=== PATIENT | female | born 1960 | race Caucasian/White ===

== ENCOUNTER 2020-06-07 11:15 | Outpatient (CLI) | payer MEDICARE, MEDICAID ==
[2020-06-07 12:11] VITALS: BP 132/74
--- NOTE | 2020-06-07 12:11 | SLEEP CARE CONSULTATION ---
Information from patient questionnaire entered by Abida Norris. I have reviewed and concur with the information entered by Abida Norris. This document represents the service I personally performed and the decisions made by me, Elena Sena ARNP. History of Present Illness Service Date and Time: 06/07/2020 1115 Reason for Visit: New patient Chief Complaint: reports: Unrefreshed sleep (only 30% of times feels rested), Snoring, Observed pauses in breathing, Fatigue, Other (previous diagnosis 20 years ago of [facility]). denies: Insomnia, Excessive daytime sleepiness, Frequent awakenings at night Date of Onset: 1999 Usual bedtime: lays down at 1030 but does not goe to sleep until 0100 on average Time it takes to fall asleep: 3 hours Snores at night: Yes Observed to quit breathing while asleep: Yes Sleeps alone due to snoring: No (single) Number of times waking at night: 3 Reasons for waking at night: reports: Choking, Snoring, Gasping for air, Other (Takes care of father all night and has to get up to given breathing treatments) Toss, Turn, or Twitch while sleeping: Yes Recalls having dreams: Yes Usually gets out of bed at: 1100 to 1300; gets up for father's neb tx at 0600 and the goes back to bed Feels refreshed in the morning: No Morning headache: Yes (sinus DRAKE every other week; last all day) Sleepy or fatigued during the day: Yes Ever fallen asleep while driving: No (did fall asleep when [age] at wheel) Takes day naps: Yes Dreams during day naps: No Prior sleep studies: Yes Year and Where: 1997 [facility] Type of Sleep Study: Polysomnography Additional HPI information: I had the pleasure of seeing RAGHAV MOULTON today regarding the possibility of her having a sleep disorder. Her current complaints are snoring. About 8 months ago, she almost choked. She woke up and her airway was closed, she sat up and until her airway opened up. She was diagnosed with sleep apnea 20 years ago but gave machine back after 2 weeks because she couldn't keep machine clean and she was getting eye infections. She was concerned that she had harmed her heart and had an echo of her heart and she was told the heart was okay. Her doctor, Dr. Rehman wants more tests done. She is having some heart pains and has an ulcer. 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 - Parasomnia Symptoms Ever been unable to move upon waking from sleep: No Walks in sleep: Yes (as a child) Talks in sleep: Yes Ever acted out dreams in sleep: No Ever felt weak in the knees when startled or emotional: No Bothered by creepy, crawly, restless sensations in legs: No Problems with memory or concentration: Yes (both) Subjective Initial [place] Sleepiness Scale score: 8 Past Medical History Past Medical History: reports: Arthritis, Anxiety, Asthma, Depression, Attention deficit, Other (hypoglycemic; sinus headaches; stomach ulcer). denies: Hypertension, Congestive Heart Failure, Diabetes, Coronary Heart Disease, Insulin resistance, Arrythmia, Hypothyroidism, Anemia, GERD Social History The patient's occupation is a [employer]. Patient is Single and lives in [place], [place]. Have you smoked in the past 12 months: No Cigarettes per day (20/pack): 5 (1 pack/month) Years of smokin Quit date: 1999 Smoking Pack Years: 2.0 Alcohol use: No Caffeine use: Yes Caffeine amount and frequency: 1 cup coffee daily Family History Family history of sleep disordered breathing: No Allergies and Home Medications Drug allergies reviewed: Yes (Sulfa) Home medication list reviewed: Yes Allergy and home medication list: tylenol prn for sinus headaches Celexa 40 mg once daily Review of Systems Cardiovascular: reports: chest pain, have to sleep sitting up. denies: high blood pressure, palpitations, irregular heart rate or pulse, leg or foot swelling Respiratory: reports: shortness of breath Gastrointestinal: reports: other (ulcer). denies: heartburn, difficulty swallowing Urinary: reports: frequency Neurological: reports: headaches, head trauma. denies: speech dysfunction, gait or balance problems Psychiatric: reports: anxiety, depression Ear/Nose/Throat: reports: nasal congestion, sinus problems, dry mouth/throat, tonsillectomy, wisdom teeth removed (only one side). denies: nose bleeds, injury to nose Endocrine: denies: thyroid disease Musculoskeletal: denies: joint pain, back pain Immunologic: denies: allergies to food or environment Physical Exam Blood Pressure: 132/74 Cuff size: long Heart Rate: 81 O2 Saturation: 98 Height: 5 ft 2 in Weight: 235 lb Body Mass Index: 43.0 BMI Classification: Morbidly Obese Neck circumference: 17.5 HEENT: No craniofacial malformation Nostrils: patent to airflow Turbinates: normal Septum: midline Mouth and throat: narrow oropharynx Soft palate: normal Hard palate: normal Uvula: normal Uvula visualization: 25% Mallampati Class III Tongue: enlarged in size with teeth rodriguez on lateral edges Tonsils: absent bilaterally Chin and jaw: normal size and position Neck: normal w/o lymphadenopathy or thyromegaly Heart: regular rate and rhythm Lungs: clear bilaterally Impression and Plan 1. Suspected Obstructive Sleep Apnea-Hypopnea Syndrome, as previously diagnosed 20 years ago at [facility] and also suggested by a history of loud and irregular snoring, gasping or choking in sleep, unrefreshed sleep, and cognitive impairment. I reviewed with patient that a narrow oropharynx and obesity are common predisposing factors for obstructive sleep apnea-hypopnea syndrome. I recommend proceeding to polysomnography to confirm the diagnosis and to assess severity. If the patient has significant sleep disordered breathing, a manual CPAP titration study will also be performed to find the optimal treatment pressure. I informed the patient of what the sleep studies involve and after some discussion, obtained agreement to proceed. Patient would like to do a HST so she would not have to leave her father for the night of the sleep study. She may have to pay for the home study as Medicare does not pay for a HST. I encouraged her to get a nurse for the night of the study to take care of her father and have the in lab study done. She would like to think about it and will call us back with her decision. The pathophysiology of obstructive sleep apnea- hypopnea syndrome was discussed with the patient and health risks of cardiovascular and cerebrovascular disease if not treated. AASM brochure for obstructive sleep apnea-hypopnea syndrome given and reviewed. Risks of drowsy driving discussed in detail and patient advised to avoid long distance driving and to gum puller at the first sign of drowsiness. Patient agreed to plan. Schedule polysomnography/HST +- manual CPAP titration study. Patient will call office with decision on which study she will do. Avoid long distance driving or driving when feeling sleepy. Avoid sedative and muscle relaxant around bedtime. Attempt to lose weight. Review instructions provided by trained office staff on how to prepare for the sleep study. Return for follow-up after sleep study completed. Visit Type: In Office Time Spent with Patient (minutes): 35 Provider Statement: I spent 100% of the Face to Face Visit with the patient with greater than 50% spent counseling the patient and coordination of care.
== END 2020-06-07 11:16 | disposition home or self-care (01) ==
LOC: SC 11:15
PROVIDERS: ATTEND Nurse Practitioner Family
DX: G47.33 Obstructive sleep apnea (adult) (pediatric) (principal); E66.01 Morbid (severe) obesity due to excess calories; Z68.41 Body mass index [BMI] 40.0-44.9, adult; F32.9 Major depressive disorder, single episode, unspecified
CPT/HCPCS: 99204; G0463; 99212

== ENCOUNTER 2020-07-30 19:07 | Outpatient (CLI) | payer MEDICARE, MEDICAID | END 2020-07-30 19:08 | disposition home or self-care (01) | LOC: SC 19:07 | PROVIDERS: ATTEND Nurse Practitioner Family | DX: G47.33 Obstructive sleep apnea (adult) (pediatric) (principal); G47.61 Periodic limb movement disorder; E66.01 Morbid (severe) obesity due to excess calories; Z68.41 Body mass index [BMI] 40.0-44.9, adult | CPT/HCPCS: 95810 ==

== ENCOUNTER 2020-08-07 13:19 | Outpatient (CLI) | payer MEDICARE, MEDICAID ==
--- NOTE | 2020-08-07 13:40 | SLEEP CARE CONSULTATION ---
Information from patient questionnaire entered by Florence Johnson. I have reviewed and concur with the information entered by Florence Johnson. This document represents the service I personally performed and the decisions made by me, Elena Sena ARNP. History of Present Illness Service Date and Time: 08/07/2020 1319 Initial [place] Sleepiness Scale score: 8 (in 2020) Current [place] Sleepiness Scale score: 5 Additional HPI information: RAGHAV MOULTON returns for follow up and results of the recently performed polysomnography. I explained the pathophysiology behind obstructive sleep apnea. We then spent quite a bit of time discussing different treatment options. For mild obstructive sleep apnea, surgery and oral appliance are alternatives to nasal CPAP therapy but in moderate or severe cases, nasal CPAP is the most effective and reliable treatment. Because apnea is primarily in supine position, then positional management therapy could be effective. Methods discussed such as positioning with pillows, using a T-shirt with tennis balls in the back, and shown commercial products that have a pillow format on back to prevent supine sleep. I reviewed the impact of weight changes on sleep apnea and strongly recommended losing weight. After some discussion, the patient opted to go with the nasal CPAP therapy. Nasal autoCPAP set at 4-15 cmH20 will be ordered with rationale explained. A manual titration study will be ordered if unable to find optimal pressure with office adjustments. I explained how CPAP machine works with sample devices Respironics Dreamstation and ResWizdee [id number] and what to expect when using the machine. Using CPAP every night in order to get used to it was emphasized. Patient advised to put CPAP mask on before getting into bed so as not to fall asleep without CPAP. To assist acclimation to CPAP use, it could also be used for a short time during day while reading or watching TV. The patient was instructed to call the CPAP supplier to discuss any mechanical problem that may occur. If the mask given is uncomfortable or is difficult to keep on through the night even with adjustment, contact the CPAP supplier as many will replace with another mask style if notified before 30 days. If snoring or perceives is not getting enough air or too much air from the machine, notify this office. AAS patient education PAP tips reviewed and given to patient. Patient was cautioned about risks of drowsy driving until sleepiness symptoms resolve. Sleep Study - Results Type of Sleep Study: Polysomnography Prior sleep studies: Yes Year and Where: 1997 [facility] Polysomnography/Home Sleep Study results: IMPRESSION: The quality of the study is good. The patient had slightly reduced sleep efficiency due to a few awakenings after the sleep onset. The sleep architecture was relatively normal considering the first-night effect. Respiratory monitoring showed mild obstructive sleep apnea-hypopnea (AHI = 14.9) associated with frequent arousals, oxyhemoglobin desaturation and mild hypoxia (ernie oxygen saturation of 82%). The patient only slept supine during this study (supine AHI = 14.9; non-supine = 0.00). Snore was infrequent and loud in intensity. There was mild periodic leg movement of sleep not associated with sleep fragmentation. Cardiac rhythm was normal sinus rhythm without significant arrhythmia. No abnormal behavior (parasomnia) observed during the night. Allergies and Home Medications Drug allergies reviewed: Yes (Sulfa, demerol) Home medication list reviewed: Yes (no changes) Review of Systems Review of systems same as previous: Yes (no changes) Physical Exam Heart Rate: 92 O2 Saturation: 99 Height: 5 ft 2 in Weight: 237 lb Body Mass Index: 43.3 BMI Classification: Morbidly Obese Impression and Plan 1. Obstructive Sleep Apnea-Hypopnea Syndrome, mild, with lowest oxygen saturation of 82%. Obviously this is the cause of the patients symptoms of unrefreshed sleep, and excessive daytime sleepiness. Positive pressure therapy could benefit anxiety, asthma, depression and attention deficit. Patient has been previously diagnosed and has tried the CPAP, she is hoping it will go better this time. As mentioned above, the patient will be started on nasal autoCPAP therapy with pressure set at 4-15 cmH2O. A manual titration study will be completed if unable to find optimal treatment pressure with office adjustments. Compliance guidelines also reviewed. A copy of compliance guidelines will be given for reference at check out. * Nasal auto CPAP therapy, pressure at 4-15 cm H2O. * Attempt to lose weight. * Avoid alcohol consumption near bedtime. * The patient is again cautioned about driving until sleepiness completely resolves. * Return one month after CPAP obtained. I will assess response to therapy and compliance at that time. Visit Type: In Office Time Spent with Patient (minutes): 16 Provider Statement: I spent 100% of the Face to Face Visit with the patient with greater than 50% spent counseling the patient and coordination of care.
== END 2020-08-07 13:20 | disposition home or self-care (01) ==
LOC: SC 13:19
PROVIDERS: ATTEND Nurse Practitioner Family
DX: G47.33 Obstructive sleep apnea (adult) (pediatric) (principal); E66.01 Morbid (severe) obesity due to excess calories; Z68.41 Body mass index [BMI] 40.0-44.9, adult
CPT/HCPCS: 99213; G0463; 99212

== ENCOUNTER 2020-09-26 21:16 | Outpatient (CLI) | payer MEDICARE, MEDICAID | END 2020-09-26 21:17 | disposition home or self-care (01) | LOC: COV 21:16 | PROVIDERS: ATTEND Family Medicine | DX: R50.9 Fever, unspecified (principal); R07.0 Pain in throat; Z20.822 Contact with and (suspected) exposure to COVID-19 ==

== ENCOUNTER 2020-10-17 11:15 | Outpatient (CLI) | payer MEDICARE, MEDICAID ==
--- NOTE | 2020-10-17 11:44 | SLEEP CARE CONSULTATION ---
Information from patient questionnaire entered by Myesha Moreno. I have reviewed and concur with the information entered by Myesha Moreno. This document represents the service I personally performed and the decisions made by me, Elena Sena ARNP. History of Present Illness Service Date and Time: 10/17/2020 1115 Previous diagnosis: Mild, Obstructive Sleep Apnea-Hypopnea Syndrome AHI: 14.9 (in 2019) Reason for follow up: first compliance Equipment type: CPAP Equipment obtained from: Other ([facility]; got initial supplies, next shipment in October) Mask style: Nasal Backup mask available: Yes (other mask) Last cushion change: 1 week ago Prior sleep studies: Yes Year and Where: 2019 - [facility]; [address] [place] [address] Type of Sleep Study: Polysomnography HPI additional information: RAGHAV MOULTON was diagnosed to have mild, AHI 14.9, obstructive sleep apnea- hypopnea syndrome and returned today for CPAP therapy first compliance follow- up. CPAP Compliance Data - Data Reviewed with Patient Average duration of nightly device use: 9 hr 41 mi Compliance rate %: 90 (08/22/20-09/20/20)(63.3 last 30 days) Current pressure setting (cmH2O): 4-15 (4.4 median, 5.2 average) Humidity settin Heated hose settin Average residual AHI: 2.6 Average large leak: 5 min 38 sec Subjective Patient concerns: reports: mask discomfort (just doesn't like something on her face), air blowing in eyes, mask leak noise, dry mouth, nose, throat (dry mouth). denies: aerophagia, condensation in mask/hose, nasal congestion, epista xis, other Observed to snore while using device: No (don't think so) Current pressure setting perceived as: comfortable On therapy, patient: reports: sleeping better, awakening more refreshed, being more awake and alert during the day, more rested overall. denies: drowsiness while driving Initial [place] Sleepiness Scale score: 8 (in 2019) Current [place] Sleepiness Scale score: 5 Allergies and Home Medications Drug allergies reviewed: Yes (Sulfa) Home medication list reviewed: Yes (Celexa) Review of Systems Review of systems same as previous: Yes (no changes) Physical Exam Heart Rate: 87 O2 Saturation: 98 Height: 5 ft 2 in Weight: 244 lb Body Mass Index: 44.6 BMI Classification: Morbidly Obese Impression and Plan 1. Obstructive Sleep Apnea-Hypopnea Syndrome, mild, with fair treatment compliance and good apnea control. On CPAP therapy, the patient has better sleep quality and is more rested overall. She states she really does not like using the CPAP machine or wearing the mask at night. Sometimes she just won't wear it at night more recently. I advised her to wear her CPAP every night to get the most benefit from the treatment. Her Roxana has decreased from 8 to 5 since starting the CPAP therapy. She has had some air blowing in her eyes and leaking but this resolves with adjusting the mask. She also wears her glasses at night and the air stops getting in her eyes. She does not want to try a different mask. She has also had some mouth dryness and her humidity is set at 3. Oral dryness can be reduced by adjusting humidity setting higher or heated hose lower or by adjusting both settings. I encouraged her to increase her her setting up to 4 to see if this will decrease her dryness, if not she can increase more. If she should get some condensation in her mask or hose she can increase the heated hose setting. She voiced understanding and agreement. I am adjusting her pressure to reflect the pressures being used with good result on control of apne as to 4-6 cmH2O. Patient's apnea severity and rationale for treatment to reduce apnea, improve sleep quality and reduce cardiovascular and cerebrovascular events was reviewed. I also reviewed the benefit of consistent device use of CPAP for depression, anxiety, asthma and attention deficit. * Change auto CPAP pressure to 4-6 cmH2O * Notify me if snoring with mask or feeling that the pressure is too much or too little * Attempt to lose weight * Call this office if any problems using CPAP * Return for follow up in 1-2 months, or sooner if concerns arise Counseling Topics: Spare mask, Weight loss health impact Visit Type: In Office Time Spent with Patient (minutes): 21 Provider Statement: I spent 100% of the Face to Face Visit with the patient with greater than 50% spent counseling the patient and coordination of care.
== END 2020-10-17 11:16 | disposition home or self-care (01) ==
LOC: SC 11:15
PROVIDERS: ATTEND Nurse Practitioner Family
DX: G47.33 Obstructive sleep apnea (adult) (pediatric) (principal); E66.01 Morbid (severe) obesity due to excess calories; Z68.41 Body mass index [BMI] 40.0-44.9, adult
CPT/HCPCS: 99213; G0463; 99212

== ENCOUNTER 2020-11-17 10:56 | Outpatient (CLI) | payer MEDICARE, MEDICAID, OTHER ==
--- NOTE | 2020-11-17 11:42 | SLEEP CARE CONSULTATION ---
Information from patient questionnaire entered by Myesha Moreno. I have reviewed and concur with the information entered by Myesha Moreno. This document represents the service I personally performed and the decisions made by , Elena Sena ARNP. History of Present Illness Service Date and Time: 11/17/2020 1056 Previous diagnosis: Mild, Obstructive Sleep Apnea-Hypopnea Syndrome AHI: 14.9 (in 2019) Reason for follow up: one month (with pressure change) Equipment type: CPAP Equipment obtained from: Other ([facility]; got initial supplies) Mask style: Nasal Backup mask available: No (will keep old mask when replaced) Last cushion change: over a week Prior sleep studies: Yes Year and Where: 2019 - [facility]; [address] [place] [address] Type of Sleep Study: Polysomnography HPI additional information: RAGHAV MOULTON was diagnosed to have mild, AHI 14.9, obstructive sleep apnea- hypopnea syndrome and returned today for CPAP therapy one month with pressure change follow-up. CPAP Compliance Data - Data Reviewed with Patient Average duration of nightly device use: 9 hr 21 min Compliance rate %: 90 Current pressure setting (cmH2O): 4-6 Humidity settin Heated hose settin Average residual AHI: 2.6 Average large leak: 5 min 51 sec Subjective Missed days of use due to: reports: mask issues Patient concerns: reports: mask discomfort (some pressure on the right side for last 2 nights, hurting nose/eye), air blowing in eyes (on right side), dry mouth, nose, throat. denies: aerophagia, mask leak noise, condensation in mask/hose, nasal congestion, epistaxis, other Observed to snore while using device: No Current pressure setting perceived as: comfortable On therapy, patient: reports: sleeping better, awakening more refreshed, being more awake and alert during the day, more rested overall. denies: drowsiness while driving Initial [place] Sleepiness Scale score: 8 (in 2019) Current [place] Sleepiness Scale score: 7 Allergies and Home Medications Drug allergies reviewed: Yes (sulfa) Home medication list reviewed: Yes (no changes) Allergy and home medication list: Celexa Review of Systems Review of systems same as previous: Yes (no changes) Physical Exam Heart Rate: 90 O2 Saturation: 98 Height: 5 ft 2 in Weight: 247 lb Body Mass Index: 45.1 BMI Classification: Morbidly Obese Impression and Plan 1. Obstructive Sleep Apnea-Hypopnea Syndrome, mild, with good treatment compliance and good apnea control. On CPAP therapy, the patient has better sleep quality and is more rested overall. She has felt the last two nights the pressure has been too much because it was blowing in her eye and caused some pain on the side of her nose. She was advised to adjust her mask for better fit. I suggested she try a sleeping mask to cover her eyes but she states that she wears glasses while sleeping which is deflecting the air from her eyes. She is concerned the pressure is too much. This has only happened the last 2 nights so I advised her to adjust her mask and see if this helps. She is to let me know if the discomfort continues and we can try to reduce her pressure at that time. She has had some mouth dryness and just drinks water during the night. Oral dryness can be reduced by adjusting humidity setting higher or heated hose lower or by adjusting both settings. Verbal instructions given on how to change humidity and heated hose settings with rationale explaining why to change. Patient advised that chronic oral dryness can affect dental health. She is exercising and walking her dogs to keep activity up to help her to lose weight. I encouraged her to continue to make efforts to lose weight. Patient's apnea severity and r ationale for treatment to reduce apnea, improve sleep quality and reduce cardiovascular and cerebrovascular events was reviewed. I also reviewed the benefit of consistent device use of CPAP for depression/anxiety, asthma and attention deficit. * Continue autoCPAP pressure at 4-6 cmH2O * Notify me if snoring with mask or feeling that the pressure is too much or too little * Attempt to lose weight * Call this office if any problems using CPAP * Return for follow up in 3 months, or sooner if concerns arise Counseling Topics: Spare mask, Weight loss health impact, Activity level Visit Type: In Office Time Spent with Patient (minutes): 21 Provider Statement: I spent 100% of the Face to Face Visit with the patient with greater than 50% spent counseling the patient and coordination of care.
== END 2020-11-17 10:57 | disposition home or self-care (01) ==
LOC: SC 10:56
PROVIDERS: ATTEND Nurse Practitioner Family
DX: G47.33 Obstructive sleep apnea (adult) (pediatric) (principal); E66.01 Morbid (severe) obesity due to excess calories; Z68.42 Body mass index [BMI] 45.0-49.9, adult
CPT/HCPCS: 99213; G0463; 99212

== ENCOUNTER 2020-12-20 12:28 | Outpatient (CLI) | payer MEDICARE, MEDICAID, OTHER ==
--- NOTE | 2020-12-21 08:25 | Mammography Report ---
BILATERAL DIGITAL SCREENING MAMMOGRAM 3D/2D: 12/20/2020 CLINICAL: Routine screening. Additional films were requested but not obtained. There are scattered fibroglandular elements in bot h breasts. There is a developing new irregular asymmetry in the right breast middle depth central to the nipple seen on the craniocaudal view only. No other significant masses, calcifications, or other findings are seen in either breast. IMPRESSION: INCOMPLETE: NEED PRIOR STUDIES FOR COMPARISON The developing new irregular asymmetry in the right breast is indeterminate. A diagnostic mammogram and ultrasound is recommended. This exam was interpreted at Station ID: [id number]. NOTE: For mammograms, a report in lay terms will be sent to the patient. Approximately 15% of breast malignancies will not be visualized mammographically. In the management of a palpable breast mass, a negative mammogram must not discourage biopsy of a clinically suspicious lesion. Electronically Signed By: Cristin ching/liborio:12/20/2020 15:58:34 ACR BI-RADS Category 0 Need prior studies for comparison [id number] PARENCHYMAL PATTERN: (A) - The breast(s) demonstrate(s) scattered fibroglandular densities. BI-RADS CATEGORY: (0) - 0 Mammo and [place] [id number] Immediate follow-up LATERALITY: (B)
== END 2020-12-20 12:29 | disposition home or self-care (01) ==
LOC: DI 12:28
PROVIDERS: ATTEND Registered Nurse
DX: Z12.31 Encounter for screening mammogram for malignant neoplasm of breast (principal); R92.8 Other abnormal and inconclusive findings on diagnostic imaging of breast

== ENCOUNTER 2021-02-01 09:35 | Outpatient (CLI) | payer MEDICARE, MEDICAID ==
--- NOTE | 2021-02-02 10:48 | Ultrasound Report ---
LIMITED ULTRASOUND OF RIGHT BREAST: 02/01/2021 CLINICAL: Patient returns today to evaluate a focal asymmetry in the right breast. Comparison is made to exams dated: 02/01/2021 mammogram, 12/20/2020 mammogram - [facility], 08/25/2019 mammogram, 12/03/2016 mammogram, and 08/12/2015 mammogram - [facility] . Real-time ultrasound of the right breast 11-1 o'clock region was performed on the areas of interest. Ralph scale images of the real-time examination were reviewed. No discrete cystic or solid mass lesion identified in the area of mammographic abnormality. IMPRESSION: NEGATIVE There is no sonographic evidence of malignancy. There are no abnormalities seen in the right breast to correspond with the mammography finding. A 1 year screening mammogram is recommended. This exam was interpreted at Station ID: [id number]. Electronically Signed By: Derek Toribio M.D. ddp/:02/01/2021 10:28:27 Ultrasound BI-RADS: 1 Negative BI-RADS CATEGORY: (1) - 1 RECOMMENDATION: (ANNUAL) - Recommend routine annual screening mammography. [id number] 1 year screening LATERALITY: (B)
--- NOTE | 2021-02-02 10:48 | Mammography Report ---
UNILATERAL RIGHT DIGITAL DIAGNOSTIC MAMMOGRAM 3D/2D: 02/01/2021 CLINICAL: Patient returns today to evaluate a density in the right breast. Comparison is made to exams dated: 12/20/2020 mammogram - [facility], [facility], 12/03/2016 mammogram, and 08/12/2015 mammogram - [facility]. There are scattere d fibroglandular elements in right breast. There is an oval low density asymmetry with an indistinct and circumscribed margin in the right breas t middle depth central to the nipple seen on the craniocaudal view only. This is less prominent on a dditional views. No other significant masses or calcifications are seen in the breast. IMPRESSION: INCOMPLETE: NEEDS ADDITIONAL IMAGING EVALUATION The oval low density asymmetry in the right breast is indeterminate. An ultrasound is recommended. Ultrasound will be performed immediately following the current exam. This exam was interpreted at Station ID: [id number]. NOTE: For mammograms, a report in lay terms will be sent to the patient. Approximately 15% of breast malignancies will not be visualized mammographically. In the management of a palpable breast mass, a negative mammogram must not discourage biopsy of a clinically suspicious lesion. Electronically Signed By: Derek Toribio M.D. ddp/:02/01/2021 10:09:51 ACR BI-RADS Category 0: Incomplete 3340F PARENCHYMAL PATTERN: (A) - The breast(s) demonstrate(s) scattered fibroglandular densities. BI-RADS CATEGORY: (0) - 0 Ultrasound [id number] Immediate follow-up LATERALITY: (B)
== END 2021-02-01 09:36 | disposition home or self-care (01) ==
LOC: DI 09:35
PROVIDERS: ATTEND Registered Nurse
DX: R92.8 Other abnormal and inconclusive findings on diagnostic imaging of breast (principal)

== ENCOUNTER 2021-02-16 10:54 | Outpatient (CLI) | payer MEDICARE, MEDICAID ==
--- NOTE | 2021-02-16 11:52 | SLEEP CARE CONSULTATION ---
Information from patient questionnaire entered by Myesha Moreno. I have reviewed and concur with the information entered by Myesha Moreno. This document represents the service I personally performed and the decisions made by , Elena Sena ARNP. History of Present Illness Service Date and Time: 02/16/2021 1054 Previous diagnosis: Mild, Obstructive Sleep Apnea-Hypopnea Syndrome AHI: 14.9 (in 2019) Reason for follow up: three month Equipment type: CPAP Equipment obtained from: Other ([facility]; getting supplies as needed) Mask style: Nasal Backup mask available: Yes (old mask) Last cushion change: last week Prior sleep studies: Yes Year and Where: 2019 - [facility]; [address] [place] [address] Type of Sleep Study: Polysomnography HPI additional information: RAGHAV MOULTON was diagnosed to have mild, AHI 14.9, obstructive sleep apnea- hypopnea syndrome and returned today for CPAP therapy three month follow-up. CPAP Compliance Data - Data Reviewed with Patient Average duration of nightly device use: 9 hr 10 min Compliance rate %: 97.8 (90 days) Current pressure setting (cmH2O): 4-6 Humidity settin Heated hose settin Average residual AHI: 2.8 Central apnea: 0.2 Obstructive apnea: 0.5 Average large leak: 6 min 11 sec Subjective Patient concerns: reports: dry mouth, nose, throat (occasionally and drinks water; has Biotene too). denies: aerophagia, mask discomfort, air blowing in eyes, mask leak noise, condensation in mask/hose, nasal congestion, epistaxis, other Observed to snore while using device: No Current pressure setting perceived as: comfortable On therapy, patient: reports: sleeping better, awakening more refreshed, being more awake and alert during the day, more rested overall. denies: drowsiness while driving Initial [place] Sleepiness Scale score: 8 (in 2019) Current [place] Sleepiness Scale score: 6 Allergies and Home Medications Home medication list reviewed: Yes (no new meds) Review of Systems Review of systems same as previous: No (numbness in R hand with pain; seeing PCP) Physical Exam Heart Rate: 70 O2 Saturation: 99 Height: 5 ft 2 in Weight: 232 lb Weight change since last visit: 15 lb loss Body Mass Index: 42.4 BMI Classification: Morbidly Obese Impression and Plan 1. Obstructive Sleep Apnea-Hypopnea Syndrome, mild, with good treatment compliance and good apnea control. On CPAP therapy, the patient has better sleep quality and is more rested overall. Patient has lost weight. Currently patients BMI is 42.4. Obesity increases the risk of apnea, CPAP pressure requirements and overall health risks especially cardiovascular and diabetes. Thus patient is advised to continue to lose weight. Weight loss can be done with reducing portion size, reducing refined foods and balancing content with vegetables, fruit and whole grain foods. The patient's CPAP pressure range should accommodate some weight loss. Symptoms to report for additional pressure adjustment discussed. Patient's apnea severity and rationale for treatment to reduce apnea, improve sleep quality and reduce cardiovascular and cerebrovascular events was reviewed. I also reviewed the benefit of consistent device use of CPAP for depression, anxiety and attention deficit. * Continue autoCPAP pressure at 4-6 cmH2O * Notify me if snoring with mask or feeling that the pressure is too much or too little * Continue to lose weight * Call this office if any problems using CPAP * Return for follow up in 6 months, or sooner if concerns arise Counseling Topics: Spare mask, Weight loss health impact Visit Type: In Office Time Spent with Patient (minutes): 20 Provider Statement: I spent 100% of the Face to Face Visit with the patient with greater than 50% spent counseling the patient and coordination of care.
== END 2021-02-16 10:55 | disposition home or self-care (01) ==
LOC: SC 10:54
PROVIDERS: ATTEND Nurse Practitioner Family
DX: G47.33 Obstructive sleep apnea (adult) (pediatric) (principal); E66.01 Morbid (severe) obesity due to excess calories; Z68.41 Body mass index [BMI] 40.0-44.9, adult
CPT/HCPCS: 99213; G0463; 99212

== ENCOUNTER 2021-02-28 10:41 | Outpatient (CLI) | payer MEDICARE, MEDICAID ==
--- NOTE | 2021-02-28 14:50 | Ultrasound Report ---
PROCEDURE: Duplex Ext Veins Right INDICATIONS: RUE EDEMA, RUE PAIN TECHNIQUE: Real-time imaging, as well as color and pulse Doppler interrogation, were performed of the lower extr emity deep veins from the inguinal ligament to the popliteal fossa. COMPARISON: None. FINDINGS: The deep veins are normally compressible, and free of intraluminal thrombus. Color and pu lse Doppler demonstrate normal phasic intraluminal flow. There is normal augmentation response to di stal compression maneuver. IMPRESSION: Negative for deep venous thrombosis of the right upper extremity. Reviewed by: Mau Burns MD on 02/28/2021 2:49 PM PDT Approved by: Mau Burns MD on 02/28/2021 2:49 PM PDT Station ID: [id number]
--- NOTE | 2021-03-01 13:49 | Ultrasound Report ---
ULTRASOUND OF RIGHT AXILLA: 02/28/2021 CLINICAL: Diffuse right axilla pain. Comparison is made to exams dated: 02/01/2021 ultrasound, 02/01/2021 mammogram, 12/20/2020 mammogram - [facility], 08/25/2019 mammogram, and 12/03/2016 mammogram - [facility] . Real-time ultrasound of the right axilla was performed. Ralph scale images of the real-time examinati on were reviewed. No significant abnormalities were seen sonographically in the right axilla. IMPRESSION: NEGATIVE There is no sonographic evidence of malignancy. There is no abnormality seen in the right axilla to correspond with the pain in the right axilla, how ever, clinical correlation is recommended. A 1 year screening mammogram is recommended. Future imaging is recommended as follows: 12/21/2021 sc reening mammogram. This exam was interpreted at Station ID: [id number]. Electronically Signed By: Shankar clemons/liborio:02/28/2021 12:20:07 Ultrasound BI-RADS: 1 Negative BI-RADS CATEGORY: (1) - 1 RECOMMENDATION: (ANNUAL) - Recommend routine annual screening mammography. [id number] 1 year screening LATERALITY: (B)
== END 2021-02-28 10:42 | disposition home or self-care (01) ==
LOC: DI 10:41
PROVIDERS: ATTEND Internal Medicine
DX: M79.621 Pain in right upper arm (principal); R60.0 Localized edema

== ENCOUNTER 2021-04-09 12:00 | Outpatient (CLI) | payer MEDICARE, MEDICAID ==
--- NOTE | 2021-04-09 12:25 | XRAY Report ---
PROCEDURE: Wrist 3 View RT INDICATIONS: RIGHT WRIST INJURY TECHNIQUE: 3 views of the wrist were acquired. COMPARISON: None FINDINGS: Bones: No fractures or dislocations. No suspicious bony lesions. Soft tissues: No suspicious soft tissue calcifications. IMPRESSION: No fracture. No osseous lesion. If there are persistent symptoms or continued clinical concern for pa thology, then repeat plain film radiographs (7-10 days) or advanced imaging (CT, MR, bone scan) shoul d be considered for further evaluation. Reviewed by: Nayana Montano MD, PhD on 04/09/2021 12:23 PM PDT Approved by: Nayana Montano MD, PhD on 04/09/2021 12:23 PM PDT Station ID: [id number]
== END 2021-04-09 12:01 | disposition home or self-care (01) ==
LOC: DI 12:00
PROVIDERS: ATTEND Internal Medicine
DX: S69.91XA Unspecified injury of right wrist, hand and finger(s), initial encounter (principal)

== ENCOUNTER 2021-11-12 12:58 | Outpatient (CLI) | payer MEDICARE, MEDICAID ==
--- NOTE | 2021-11-12 13:33 | XRAY Report ---
PROCEDURE: Chest 2 View X-Ray INDICATIONS: COUGH TECHNIQUE: 2 view(s) of the chest. COMPARISON: None. FINDINGS: SUPPORT DEVICES: None. LUNGS/PLEURA: No focal consolidation, pleural effusion or space-occupying pneumothorax. MEDIASTINUM: The cardiomediastinal silhouette is within normal limits. BONES/SOFT TISSUES: No acute abnormality. IMPRESSION: 1.No acute cardiopulmonary abnormality. Reviewed by: Murphy Tripathi MD on 11/12/2021 1:32 PM [facility] Approved by: Murphy Tripathi MD on 11/12/2021 1:32 PM [facility] Station ID: [id number]
== END 2021-11-12 12:59 | disposition home or self-care (01) ==
LOC: DI 12:58
PROVIDERS: ATTEND Internal Medicine
DX: R05.3 Chronic cough (principal)

== ENCOUNTER 2021-12-25 11:01 | Outpatient (CLI) | payer MEDICARE, MEDICAID ==
[2021-12-25 11:42] VITALS: BP 133/92
--- NOTE | 2021-12-25 11:42 | SLEEP CARE CONSULTATION ---
Information from patient questionnaire entered by Jonatan Calvert MA. I have reviewed and concur with the information entered by Jonatan Calvert MA. This document represents the service I personally performed and the decisions made by , Elena Sena ARNP. History of Present Illness Service Date and Time: 12/25/2021 1101 Previous diagnosis: Mild, Obstructive Sleep Apnea-Hypopnea Syndrome AHI: 14.9 (in 2019) Reason for follow up: six month (6 month f/u. check new machine, ) Equipment type: CPAP Equipment obtained from: Other ([facility]; getting supplies as needed) Mask style: Nasal Backup mask available: Yes (old mask) Last cushion change: 2 weeks Prior sleep studies: Yes Year and Where: 2019 - [facility]; [address] [place] [address] Type of Sleep Study: Polysomnography HPI additional information: RAGHAV MOULTON was diagnosed to have mild, AHI 14.9, obstructive sleep apnea- hypopnea syndrome and returned today for CPAP therapy six month follow-up. Sleep Study - Results Type of Sleep Study: Polysomnography Prior sleep studies: Yes Year and Where: 2019 - [facility]; [address] [place] [address] CPAP Compliance Data - Data Reviewed with Patient Average duration of nightly device use: 5 hours 10 minutes Compliance rate %: 63.3 (30 days) Current pressure setting (cmH2O): 4-6 Humidity settin Heated hose settin Average residual AHI: 2.0 Central apnea: 0.2 Obstructive apnea: 0.3 Average large leak: 53 seconds Subjective Missed days of use due to: reports: other (couldn't afford to pay monthly copay to get supplies) Patient concerns: reports: dry mouth, nose, throat (dry nose, throat). denies: aerophagia, mask discomfort, air blowing in eyes, mask leak noise, condensation in mask/hose, nasal congestion, epistaxis, other Observed to snore while using device: No Current pressure setting perceived as: comfortable On therapy, patient: reports: sleeping better, awakening more refreshed, being more awake and alert during the day, more rested overall. denies: drowsiness while driving Initial [place] Sleepiness Scale score: 8 (in 2019) Current [place] Sleepiness Scale score: 4 (12/2021) Allergies and Home Medications Known drug allergies: Yes (SULFA) Drug allergies reviewed: Yes Home medication list reviewed: Yes (no changes) Allergy and home medication list: Celexa Review of Systems Review of systems same as previous: Yes (no changes) Physical Exam Vital signs obtained and entered by: PEYMAN WHEAT Blood Pressure: 133/92 (PULSE 72, RESP 18, RIGHT, ) Heart Rate: 73 O2 Saturation: 97 (N95) Height: 5 ft 2 in Weight: 196 lb Body Mass Index: 35.8 BMI Classification: Obese Impression and Plan 1. Obstructive Sleep Apnea-Hypopnea Syndrome, mild, with good treatment compliance and good apnea control. On CPAP therapy, the patient has better sleep quality and is more rested overall. She has been over 90% compliant in the past but she had issues about affording her CPAP supplies copay. She stopped using the CPAP because she could not afford the copay because she did not want to run out of supplies. Patient's apnea severity and rationale for treatment to reduce apnea, improve sleep quality and reduce cardiovascular and cerebrovascular events was reviewed. I also reviewed the benefit of consistent device use of CPAP for depression, anxiety and attention deficit. 2. Obesity, unspecified. Currently patients BMI is 35.8. Obesity increases the risk of apnea, CPAP pressure requirements and overall health risks especially cardiovascular and diabetes. Thus patient is advised to continue to try to lose weight. Weight loss can be done with reducing portion size, reducing refined foods and balancing content with vegetables, fruit and whole grain foods. In addition, patient encouraged to get regular exercise. The patient's CPAP pressure range should accommodate some weight loss. Symptoms to report for additional pressure adjustment discussed. * Continue auto CPAP pressure at 4-6 cmH2O * Notify me if snoring with mask or feeling that the pressure is too much or too little * Attempt to lose weight * Call this office if any problems using CPAP * Return for follow up in 1 year, or sooner if concerns arise Counseling Topics: Spare mask, Weight loss health impact Visit Type: In Office Time Spent with Patient (minutes): 23 Provider Statement: I spent 100% of the Face to Face Visit with the patient with greater than 50% spent counseling the patient and coordination of care.
== END 2021-12-25 11:02 | disposition home or self-care (01) ==
LOC: SC 11:01
PROVIDERS: ATTEND Nurse Practitioner Family
DX: G47.33 Obstructive sleep apnea (adult) (pediatric) (principal); E66.9 Obesity, unspecified; Z68.35 Body mass index [BMI] 35.0-35.9, adult
CPT/HCPCS: 99213; G0463; 99212

== ENCOUNTER 2023-03-05 14:41 | Outpatient (CLI) | payer MEDICARE, MEDICAID ==
--- NOTE | 2023-03-05 15:03 | SLEEP CARE CONSULTATION ---
Information from patient questionnaire entered by Steph Ruffin. I have reviewed and concur with the information entered by Steph Ruffin. This document represents the service I personally performed and the decisions made by me, Elena Sena ARNP. History of Present Illness Service Date and Time: 03/05/2023 1441 Previous diagnosis: Mild, Obstructive Sleep Apnea-Hypopnea Syndrome AHI: 14.9 (in 2019) Reason for follow up: annual (LAST SEEN 01/2022) Equipment type: CPAP (Dreamstation 2, s/u 08/21/2020) Equipment obtained from: Other ([facility]; getting supplies as needed) Mask style: Nasal Mask brand: Respironics (Dreamwear) Backup mask available: Yes (old mask) Last cushion change: 2 weeks ago Prior sleep studies: Yes Year and Where: 2019 - [facility]; [address] [place] [address] Type of Sleep Study: Polysomnography HPI additional information: RAGHAV MOULTON was diagnosed to have mild, AHI 14.9, obstructive sleep apnea- hypopnea syndrome and returned today for CPAP therapy annual follow-up. Sleep Study - Results Type of Sleep Study: Polysomnography Prior sleep studies: Yes Year and Where: 2019 - [facility]; [address] [place] [address] CPAP Compliance Data - Data Reviewed with Patient Average duration of nightly device use: 6 hours 39 minutes Compliance rate %: 58.3 (113/180 days used) Current pressure setting (cmH2O): 4-6 Average residual AHI: 3.0 Central apnea: 0.1 Obstructive apnea: 0.4 Hypopnea: 2.5 Average large leak: 1 mins 11 secs Subjective Missed days of use due to: reports: other (fall asleep without mask on, trying to prep earlier to remember to put on) Patient concerns: denies: aerophagia, mask discomfort, air blowing in eyes, mask leak noise, condensation in mask/hose, nasal congestion, dry mouth, nose, throat, epistaxis Observed to snore while using device: No Current pressure setting perceived as: comfortable On therapy, patient: reports: sleeping better, awakening more refreshed, being more awake and alert during the day, more rested overall. denies: drowsiness while driving Initial [place] Sleepiness Scale score: 8 (in 2019) Current [place] Sleepiness Scale score: 5 Allergies and Home Medications Known drug allergies: Yes (Sulfa) Drug allergies reviewed: Yes Home medication list reviewed: Yes (no changes) Review of Systems Review of systems same as previous: Yes (no changes) Physical Exam Vital signs obtained and entered by: Elena Rahman NP Blood Pressure: 128/58 Cuff size: wrist (right) Heart Rate: 77 O2 Saturation: 98 Height: 5 ft 2 in Weight: 219 lb Body Mass Index: 40.0 BMI Classification: Morbidly Obese Impression and Plan 1. Obstructive Sleep Apnea-Hypopnea Syndrome, mild, with fair treatment compliance and good apnea control. On CPAP therapy, the patient has better sleep quality and is more rested overall. 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 She is trying to prepare it earlier in the day so she is not so tired coming to it at the end of the day and not want to put it on. I encouraged her to put her CPAP mask on every night and reviewed compliance guidelines with her. She voiced understanding. Patient has significant improvement of their sleep apnea and is satisfied with current CPAP therapy. Patient denies problems with oral dryness, nasal congestion, epistaxis, skin irritation or aerophagia. Patient's apnea severity and rationale for treatment to reduce apnea, improve sleep quality and reduce cardiovascular and cerebrovascular events was reviewed. I also reviewed the benefit of consistent device use of CPAP for depression, anxiety and attention deficit. 2. Obesity, unspecified. Currently patients BMI is 40. She has gained weight. Obesity increases the risk of apnea, CPAP pressure requirements and overall health risks especially cardiovascular and diabetes. Thus patient is advised to lose weight. * Continue auto CPAP pressure at 4-6 cmH2O * Update supply prescription * Notify me if snoring with mask or feeling that the pressure is too much or too little * Attempt to lose weight * Call this office if any problems using CPAP * Return for follow up in 1 year, or sooner if concerns arise Counseling Topics: Spare mask, Weight loss health impact Visit Type: In Office Time Spent with Patient (minutes): 20 Provider Statement: I spent 100% of the Face to Face Visit with the patient with greater than 50% spent counseling the patient and coordination of care.
[2023-03-05 15:05] VITALS: BP 128/58
== END 2023-03-05 14:42 | disposition home or self-care (01) ==
LOC: SC 14:41
PROVIDERS: ATTEND Nurse Practitioner Family
DX: G47.33 Obstructive sleep apnea (adult) (pediatric) (principal); E66.01 Morbid (severe) obesity due to excess calories; Z68.41 Body mass index [BMI] 40.0-44.9, adult
CPT/HCPCS: 99213; G0463; 99212

== ENCOUNTER 2023-03-22 08:39 | Outpatient (CLI) | payer MEDICARE, MEDICAID ==
[2023-03-22 09:06] LABS: BASOPHILS % (AUTO) 0.6 %; EOSINOPHILS # (AUTO) 0.2 10^3/uL (0.0-0.7); EOSINOPHILS % (AUTO) 2.4 %; HCT - HEMATOCRIT 41.1 % (37.0-47.0); HGB - HEMOGLOBIN 13.9 g/dL (12.0-16.0); LYMPHOCYTES # (AUTO) 1.7 10^3/uL (1.5-3.5); LYMPHOCYTES % (AUTO) 24.3 %; MEAN CORPUSCULAR HEMOGLOBIN 32.6 pg (27.0-31.0); MEAN CORPUSCULAR HGB CONC 33.8 g/dL (32.0-36.0); MEAN CORPUSCULAR VOLUME 96.3 fL (81.0-99.0); MEAN PLATELET VOLUME 8.9 fL (7.9-10.8); MONOCYTES # (AUTO) 0.5 10^3/uL (0.0-1.0); MONOCYTES % (AUTO) 7.2 %; NEUTROPHILS # (AUTO) 4.6 10^3/uL (1.5-6.6); NEUTROPHILS % (AUTO) 65.2 %; PLT - PLATELET COUNT 219 10^3/uL (130-450); RED BLOOD COUNT 4.27 10^6/uL (4.20-5.40); WHITE BLOOD COUNT 7.1 x10^3/uL (4.8-10.8)
[2023-03-22 09:22] LABS: ALBUMIN/GLOBULIN RATIO 1.1 (1.0-2.2); ALKALINE PHOSPHATASE 78 IU/L (42-121); ALT ALANINE AMINOTRANSFERASE 16 IU/L (10-60); AST ASPARTATE AMINOTRANSFERASE 21 IU/L (10-42); BILIRUBIN,TOTAL 1.2 mg/dL (0.2-1.0); BUN - BLOOD UREA NITROGEN 23 mg/dL (6-20); CALCIUM 8.7 mg/dL (8.5-10.3); CARBON DIOXIDE - CO2 29 mmol/L (21-32); CHLORIDE 104 mmol/L (101-111); CHOL/HDL RATIO 4.1 (<4.4); CHOLESTEROL 221 mg/dL; CREATININE 0.8 mg/dL (0.4-1.0); GFR - MDRD 72 (>89); GLUCOSE 101 mg/dL (70-100); HDL CHOLESTEROL 54 mg/dL; LDL CHOLESTEROL,CALCULATED 138 mg/dL; LDL/HDL RATIO 2.6 (<4.4); POTASSIUM 4.3 mmol/L (3.5-5.0); SODIUM 139 mmol/L (135-145); TOTAL PROTEIN 7.8 g/dL (6.7-8.2); TRIGLYCERIDES 146 mg/dL; VLDL CHOLESTEROL 29 mg/dL
[2023-03-22 09:39] LABS: THYROID STIMULATING HORMONE 2.54 uIU/mL (0.34-5.60)
[2023-03-23 07:08] LABS: HCV AB Non Reactive (Non Reactive)
== END 2023-03-22 08:40 | disposition home or self-care (01) ==
LOC: LAB 08:39
PROVIDERS: ATTEND Internal Medicine
DX: Z00.00 Encounter for general adult medical examination without abnormal findings (principal); J45.991 Cough variant asthma; F32.A Depression, unspecified; H02.9 Unspecified disorder of eyelid; G47.33 Obstructive sleep apnea (adult) (pediatric); M19.90 Unspecified osteoarthritis, unspecified site; Z11.59 Encounter for screening for other viral diseases
CPT/HCPCS: 36415; 80053; 80061; 82607; 83721; 84443; 85025; 86803

== ENCOUNTER 2023-04-25 07:41 | Outpatient (CLI) | payer MEDICARE, MEDICAID ==
--- NOTE | 2023-04-28 11:24 | Mammography Report ---
BILATERAL DIGITAL SCREENING MAMMOGRAM 3D/2D: 04/25/2023 CLINICAL: Routine screening. Comparison is made to exams dated: 02/01/2021 mammogram, 12/20/2020 mammogram - [facility], 08/25/2019 mammogram, 12/03/2016 mammogram, and 08/12/2015 mammogram - [facility]. There are scattered areas of fibroglandular density in both breasts (category b / 25%-50% glandular t issue). No significant masses, calcifications, or other findings are seen in either breast. There has been no significant interval change. IMPRESSION: NEGATIVE There is no mammographic evidence of malignancy. A 1 year screening mammogram is recommended. Based on the Tyrer Cuzick model (a risk assessment model) the patients lifetime risk is 4.6% and her 10 year risk is 2.1%. According to the ACR, ACS, and NCCN guidelines, an annual breast MRI exam pippa g with mammogram is recommended if the patients lifetime risk is 20% or greater. This exam was interpreted at Station ID: [id number]. NOTE: For mammograms, a report in lay terms will be sent to the patient. Approximately 15% of breast malignancies will not be visualized mammographically. In the management of a palpable breast mass, a negative mammogram must not discourage biopsy of a clinically suspicious lesion. Electronically Signed By: Mau novoa/liborio:04/25/2023 16:28:14 letter sent: No_Letter ACR BI-RADS Category 1: Negative 3341F PARENCHYMAL PATTERN: (A) - The breast(s) demonstrate(s) scattered fibroglandular densities. BI-RADS CATEGORY: (1) - 1 Mammogram [id number] 1 year screening LATERALITY: (B)
== END 2023-04-25 07:42 | disposition home or self-care (01) ==
LOC: DI 07:41
PROVIDERS: ATTEND Internal Medicine
DX: Z12.31 Encounter for screening mammogram for malignant neoplasm of breast (principal)

== ENCOUNTER 2023-04-30 14:41 | Outpatient (CLI) | payer MEDICARE, MEDICAID ==
[2023-04-30 15:03] LABS: CREATININE 0.9 mg/dL (0.6-1.3)
== END 2023-04-30 14:42 | disposition home or self-care (01) ==
LOC: LAB 14:41
PROVIDERS: ATTEND Internal Medicine
DX: Z79.899 Other long term (current) drug therapy (principal)
CPT/HCPCS: 36415; 82565

== ENCOUNTER 2023-07-10 08:00 | Outpatient (CLI) | payer MEDICARE, MEDICAID | END 2023-07-10 23:59 | disposition home or self-care (01) | LOC: LAB.N 08:00 | PROVIDERS: ATTEND Registered Nurse | DX: U07.1 COVID-19 (principal) ==

== ENCOUNTER 2023-07-10 12:36 | Outpatient (CLI) | payer MEDICARE, MEDICAID ==
--- NOTE | 2023-07-10 15:16 | XRAY Report ---
PROCEDURE: Chest 2 View X-Ray INDICATIONS: FATIGUE,ACUTE COUGH TECHNIQUE: 2 views of the chest were acquired. COMPARISON: 11/12/2021 FINDINGS: Surgical changes and devices: None. Lungs and pleura: No pleural effusions or pneumothorax. Lungs are clear. Mediastinum: Mediastinal contours appear normal. Heart size is normal. Bones and chest wall: No suspicious bony lesions. Overlying soft tissues appear unremarkable. IMPRESSION: No acute cardiopulmonary process. Reviewed by: Nayana Montano MD, PhD on 07/10/2023 3:15 PM PDT Approved by: Nayana Montano MD, PhD on 07/10/2023 3:15 PM PDT Station ID: [id number]
== END 2023-07-10 12:37 | disposition home or self-care (01) ==
LOC: DI 12:36
PROVIDERS: ATTEND Registered Nurse
DX: R53.83 Other fatigue (principal); R05.1 Acute cough

== ENCOUNTER 2023-07-14 08:00 | Outpatient (CLI) | payer MEDICARE, MEDICAID | END 2023-07-14 23:59 | disposition home or self-care (01) | LOC: LAB.N 08:00 | PROVIDERS: ATTEND Registered Nurse | DX: U07.1 COVID-19 (principal) ==

== ENCOUNTER 2023-12-10 08:00 | Outpatient (CLI) | payer MEDICARE, MEDICAID | END 2023-12-10 08:01 | disposition home or self-care (01) | LOC: LAB.N 08:00 | PROVIDERS: ATTEND Family Medicine | DX: J06.9 Acute upper respiratory infection, unspecified (principal) ==

== ENCOUNTER 2024-01-27 12:30 | Outpatient (CLI) | payer MEDICARE, MEDICAID ==
[2024-01-27 17:46] LABS: BASOPHILS % (AUTO) 0.6 %; EOSINOPHILS # (AUTO) 0.1 10^3/uL (0.0-0.7); HCT - HEMATOCRIT 42.2 % (37.0-47.0); HGB - HEMOGLOBIN 14.3 g/dL (12.0-16.0); LYMPHOCYTES % (AUTO) 28.1 %; MEAN CORPUSCULAR HEMOGLOBIN 32.9 pg (27.0-31.0); MEAN CORPUSCULAR HGB CONC 33.9 g/dL (32.0-36.0); MEAN PLATELET VOLUME 9.2 fL (7.9-10.8); MONOCYTES # (AUTO) 0.6 10^3/uL (0.0-1.0); NEUTROPHILS # (AUTO) 4.3 10^3/uL (1.5-6.6); NEUTROPHILS % (AUTO) 59.9 %; PLT - PLATELET COUNT 254 10^3/uL (130-450); RED BLOOD COUNT 4.35 10^6/uL (4.20-5.40); RED CELL DISTRIBUTION WIDTH 12.2 % (12.0-15.0); WHITE BLOOD COUNT 7.1 x10^3/uL (4.8-10.8)
[2024-01-27 17:56] LABS: BILIRUBIN,URINE NEGATIVE (NEGATIVE); GLUCOSE, URINE (UA) NEGATIVE (NEGATIVE); KETONES,URINE (UA) NEGATIVE (NEGATIVE); LEUKOCYTE ESTERASE, URINE NEGATIVE (NEGATIVE); NITRITE,URINE NEGATIVE (NEGATIVE); OCCULT BLOOD,URINE NEGATIVE (NEGATIVE); PROTEIN,URINE NEGATIVE (NEGATIVE); UROBILINOGEN,URINE 0.2 (NORMAL) E.U./dL (NORMAL)
[2024-01-27 18:01] LABS: CLARITY,URINE CLEAR (CLEAR)
[2024-01-27 18:08] LABS: ALBUMIN 4.2 g/dL (3.2-5.5); ALBUMIN/GLOBULIN RATIO 1.2 (1.0-2.2); BILIRUBIN,TOTAL 0.6 mg/dL (0.2-1.0); CALCIUM 9.8 mg/dL (8.5-10.3); CREATININE 0.7 mg/dL (0.6-1.3); POTASSIUM 4.5 mmol/L (3.5-4.5); TOTAL PROTEIN 7.8 g/dL (6.4-8.9)
[2024-01-27 18:11] LABS: BACTERIA,URINE Few /HPF (None Seen); RBC,URINE None Seen /HPF (0-5); SQUAMOUS EPITHELIAL CELL,UR MOD Squamous (<= Few); WBC,URINE 0-3 /HPF (0-5)
[2024-01-27 18:15] LABS: THYROID STIMULATING HORMONE 2.13 uIU/mL (0.34-5.60)
== END 2024-01-27 12:45 | disposition home or self-care (01) ==
LOC: LAB.N 12:30
PROVIDERS: ATTEND Specialist
DX: R53.83 Other fatigue (principal)
CPT/HCPCS: 36415; 80053; 81001; 84443; 85025; 87086

== ENCOUNTER 2024-03-19 09:15 | Outpatient (CLI) | payer MEDICARE, MEDICAID ==
--- NOTE | 2024-03-19 09:56 | Sleep Patient Instructions ---
Sleep Center Visit Summary - Patient Visit Information Reason for Visit: Annual follow-up - Patient Instructions Additional Instructions: You will continue with CPAP therapy with pressure set at 4-6 cmH2O. A supply prescription will be updated with your DME. We encourage you to continue to try to lose weight. Please follow up with the sleep care office in 1 year. - Clinic Information Contact: [facility] [address] [place] [address] [email or web address] T: [phone]
--- NOTE | 2024-03-19 09:59 | SLEEP CARE CONSULTATION ---
Information from patient questionnaire entered by Steph Ruffin. I have reviewed and concur with the information entered by Steph Ruffin. This document represents the service I personally performed and the decisions made by , Elena Sena ARNP. History of Present Illness Service Date and Time: 03/19/2024 09 Previous diagnosis: Mild, Obstructive Sleep Apnea-Hypopnea Syndrome AHI: 14.9 (in 2019) Reason for follow up: annual (LAST SEEN 02/2023) Equipment type: CPAP (Dreamstation 2, s/u 08/21/2020) Equipment obtained from: Other ([facility]; getting supplies as needed) Mask style: Nasal Backup mask available: No Last cushion change: monthly Prior sleep studies: Yes Year and Where: 2019 - [facility]; [address] [place] [address] Type of Sleep Study: Polysomnography HPI additional information: RAGHAV MOULTON was diagnosed to have mild, AHI 14.9, obstructive sleep apnea- hypopnea syndrome and returned today for CPAP therapy annual follow-up. Sleep Study - Results Type of Sleep Study: Polysomnography Prior sleep studies: Yes Year and Where: 2019 - [facility]; [address] [place] [address] CPAP Compliance Data - Data Reviewed with Patient Average duration of nightly device use: 5 HRS 49 MINS 45 SECS Compliance rate %: 79.5 (03/17/23-03/15/24; 309/365 days used) Current pressure setting (cmH2O): 4-6 Average residual AHI: 3.1 Central apnea: 0.1 Obstructive apnea: 0.4 Hypopnea: 2.6 Average large leak: 1 min 19 secs Subjective Missed days of use due to: reports: illness Patient concerns: reports: dry mouth, nose, throat (dry mouth). denies: aerophagia, mask discomfort, air blowing in eyes, mask leak noise, condensation in mask/hose, nasal congestion, epistaxis Observed to snore while using device: No Current pressure setting perceived as: comfortable On therapy, patient: reports: sleeping better, awakening more refreshed, being more awake and alert during the day, more rested overall. denies: drowsiness while driving Initial [place] Sleepiness Scale score: 8 (in 2019) Current [place] Sleepiness Scale score: 5 Allergies and Home Medications Known drug allergies: No Drug allergies reviewed: Yes Home medication list reviewed: Yes (no changes) Allergy and home medication list: Allergies No Known Drug Allergies Allergy (Verified 03/17/24 08:39) Review of Systems Review of systems same as previous: Yes (upcoming endoscopy & colonoscopy) Physical Exam Vital signs obtained and entered by: Elena Rahman NP Blood Pressure: 138/82 Cuff size: long (right arm) Heart Rate: 91 O2 Saturation: 98 Height: 5 ft 2 in Weight: 222 lb 9.6 oz Weight change since last visit: 3 lb loss Body Mass Index: 40.7 BMI Classification: Morbidly Obese Impression and Plan 1. Obstructive Sleep Apnea-Hypopnea Syndrome, mild, with good treatment compliance and good apnea control. On CPAP therapy, the patient has better sleep quality and is more rested overall. She get some dry mouth but drinks water at the bedside and it is not a problem. She does not know if she is oral venting. She has significant improvement of her sleep apnea and is satisfied with current therapy. Patient's apnea severity and rationale for treatment to reduce apnea, improve sleep quality and reduce cardiovascular and cerebrovascular events was reviewed. I also reviewed the benefit of consistent device use of CPAP for depression/anxiety, attention deficit. 2. Obesity, unspecified. Currently patients BMI is 40.7. She has lost weight. Obesity increases the risk of apnea, CPAP pressure requirements and overall health risks especially cardiovascular and diabetes. Thus patient is advised to continue to try to lose weight. * Continue auto CPAP pressure at 4-6 cmH2O * Update supply prescription * Notify me if snoring with mask or feeling that the pressure is too much or too little * Attempt to lose weight * Call this office if any problems using CPAP * Return for follow up in 12 months, or sooner if concerns arise Counseling Topics: Spare mask, Weight loss health impact Prescriptions: Device supplies Follow up with Sleep Care in: 1 year Visit Type: In Office Time Spent with Patient (minutes): 20 Provider Statement: I spent 100% of the Face to Face Visit with the patient with greater than 50% spent counseling the patient and coordination of care.
[2024-03-19 10:06] VITALS: BP 138/82; O2SAT 98
== END 2024-03-19 09:16 | disposition home or self-care (01) ==
LOC: SC 09:15
PROVIDERS: ATTEND Nurse Practitioner Family
DX: G47.33 Obstructive sleep apnea (adult) (pediatric) (principal); E66.01 Morbid (severe) obesity due to excess calories; Z68.41 Body mass index [BMI] 40.0-44.9, adult
CPT/HCPCS: 99213; G0463; 99212

== ENCOUNTER 2024-04-08 08:00 | Outpatient (CLI) | payer MEDICARE, MEDICAID ==
[2024-04-08 13:19] LABS: INFLUENZA A- RESP PCR PANEL NOT DETECTED; INFLUENZA B - RESP PCR PANEL NOT DETECTED; RSV- RESP PCR PANEL NOT DETECTED
[2024-04-08 13:25] LABS: SARS-CoV-2 -RESP PCR PANEL DETECTED
== END 2024-04-08 23:59 | disposition home or self-care (01) ==
LOC: LAB 08:00
PROVIDERS: ATTEND Physician Assistant
DX: U07.1 COVID-19 (principal)
CPT/HCPCS: 87070; 87637

== ENCOUNTER 2024-04-12 17:55 | Emergency (ER) | payer MEDICARE ==
--- NOTE | 2024-04-12 18:13 | ED Physician Documentation ---
PD HPI DYSPNEA - Stated complaint Stated Complaint: SOA - Chief complaint Chief Complaint: Resp - History obtained from History obtained from: Patient - Additional information Additional information: 63-year-old woman developed symptomatic COVID 6 days ago. She is on now day 3 of Paxlovid as well. She is more short of breath today. Denies chest pain, pedal edema or calf pain. No history of heart problems. She has mild intermittent asthma and only uses a rescue inhaler as needed but it was not helpful today. PD PAST MEDICAL HISTORY - Past Medical History Past Medical History: No - Past Surgical History Past Surgical History: No - Present Medications Home Medications: Ambulatory Orders Medication Instructions Recorded Confirmed Celexa 40 mg ORAL DAILY 03/05/23 03/19/24 Albuterol Sulf [Ventolin Hfa 1 - 2 puffs INH Q4HR PRN #1 each 04/12/24 Inhaler] guaiFENesin/CODEINE [Robitussin AC] 5 - 10 ml PO Q6H PRN #120 ml 04/12/24 - Allergies Allergies/Adverse Reactions: Allergies Allergy/AdvReac Type Severity Reaction Status Date / Time Sulfa (Sulfonamide Allergy Rash Verified 04/12/24 18:02 Antibiotics) - Social History Does the pt smoke?: No Smoking Status: Never smoker Does the pt drink ETOH?: No Does the pt have substance abuse?: No - Immunizations Immunizations are current?: Yes - POLST Patient has POLST: No PD ED PE NORMAL - Vitals Vital signs reviewed: Yes - General General: Alert and oriented X 3, No acute distress - Cardiac Cardiac: RRR, No murmur - Respiratory Respiratory: No respiratory distress, Other (Mild expiratory wheezes, nonlabored) - Extremities Extremities: No edema, No calf tenderness / cord - Neuro Neuro: Alert and oriented X 3, Normal speech Results - Vitals Vitals: Vital Signs - 24 hr 04/12/24 04/12/24 18:02 18:06 Temperature 37.0 C Heart Rate 100 84 Respiratory 24 20 Rate Blood Pressure 123/77 O2 Saturation 100 Oxygen O2 Source Room air PD Medical Decision Making - ED course ED course: She presents with pain and shortness of breath with symptomatic COVID. The pain is from coughing. She felt better after a DuoNeb and also requested a dose of oral steroids as she has had that with prior illnesses and it was quite helpful for her. Her examination is notable only for mild wheezes. No respiratory compromise. Nothing to suggest bacterial superinfection or pneumonia. Departure - Departure Disposition: 01 Home, Self Care Clinical Impression: COVID-19 Asthma Qualifiers: Asthma severity: mild Asthma persistence: intermittent Asthma complication type: with acute exacerbation Qualified Code(s): J45.21 - Mild intermittent asthma with (acute) exacerbation Condition: Good Record reviewed to determine appropriate education?: Yes Instructions: Asthma Dc, ED Viral Syndrome Prescriptions: Albuterol Sulf [Ventolin Hfa Inhaler] 1 - 2 puffs INH Q4HR PRN #1 each PRN Reason: Shortness Of Air/Wheezing guaiFENesin/CODEINE [Robitussin AC] 5 - 10 ml PO Q6H PRN #120 ml PRN Reason: Cough Comments: I [facility] [place]. You should continue to quarantine and wear a mask. Do not drink or drive while taking prescription cough medicine with codeine. Return for new or worsening symptoms. Forms: PCP List
[2024-04-12] MEDS: IPRATROPIUM/ALBUTEROL 3 ML NEB INH STA (18:26)
[2024-04-12] MEDS: DEXAMETHASONE 10 MG/ML VIAL PO STA (19:21)
[2024-04-12] MEDS: CHERRY SYRUP 10 ML UDC PO ONE (19:21)
[2024-04-12 19:36] VITALS: BP 155/64; O2SAT 99
== END 2024-04-12 19:29 | disposition home or self-care (01) ==
LOC: ED 17:55
DX: U07.1 COVID-19 (principal); J45.21 Mild intermittent asthma with (acute) exacerbation
CPT/HCPCS: 94640; 99283; A9270

== ENCOUNTER 2024-05-04 08:57 | Outpatient (CLI) | payer MEDICARE ==
--- NOTE | 2024-05-05 08:56 | Mammography Report ---
BILATERAL DIGITAL SCREENING MAMMOGRAM 3D/2D WITH EXAGGERATED CC: 05/04/2024 CLINICAL: Routine screening. Comparison is made to exams dated: 04/25/2023 mammogram, 02/01/2021 mammogram, 12/20/2020 mammogram - [facility], 08/25/2019 mammogram, 12/03/2016 mammogram, and 08/12/2015 mammogram - [facility]. There are scattered areas of fibroglandular density in both breasts (category b / 25%-50% glandular t issue). No significant masses, calcifications, or other findings are seen in either breast. There has been no significant interval change. IMPRESSION: NEGATIVE There is no mammographic evidence of malignancy. A 1 year screening mammogram is recommended. Based on the Tyrer Cuzick model (a risk assessment model) the patient's lifetime risk is 4.4% and her 10 year risk is 2.1%. According to the ACR, ACS, and NCCN guidelines, an annual breast MRI exam pippa g with mammogram is recommended if the patient's lifetime risk is 20% or greater. This exam was interpreted at Station ID: [id number]. NOTE: For mammograms, a report in lay terms will be sent to the patient. Approximately 15% of breast malignancies will not be visualized mammographically. In the management of a palpable breast mass, a negative mammogram must not discourage biopsy of a clinically suspicious lesion. Electronically Signed By: Arlen Chan M.D., Ph.D. eb/liborio:05/04/2024 14:37:38 letter sent: No_Letter ACR BI-RADS Category 1: Negative [id number] PARENCHYMAL PATTERN: (A) - The breast(s) demonstrate(s) scattered fibroglandular densities. BI-RADS CATEGORY: (1) - 1 RECOMMENDATION: (ANNUAL) - Recommend routine annual screening mammography. [id number] 1 year screening LATERALITY: (B)
== END 2024-05-04 08:58 | disposition home or self-care (01) ==
LOC: DI 08:57
PROVIDERS: ATTEND Internal Medicine
DX: Z12.31 Encounter for screening mammogram for malignant neoplasm of breast (principal); R92.323 Mammographic fibroglandular density, bilateral breasts